=== PATIENT | male | born 1995 | race Two or more races ===

== ENCOUNTER 2019-03-31 20:32 | Emergency (ER) | payer MEDICAID ==
[~2019-03-31] VITALS: Ht 167.6 cm; Wt 67.1 kg
[2019-03-31] MEDS ORDERED: ONDANSETRON HCL 4 MG/2 ML VIAL ONE (21:00)
[2019-03-31] MEDS ORDERED: HYDROmorphone HCL 2 MG/ML VL IV ONE ×2 (21:00→23:00)
[2019-03-31] MEDS ORDERED: HYDROmorphone HCL 2 MG/ML VL ONE (21:00)
[2019-03-31] MEDS ORDERED: ONDANSETRON HCL 4 MG/2 ML VIAL IV ONE ×2 (21:00→23:00)
[2019-03-31] MEDS ORDERED: cefTRIAXone 1GM/50ML D5W 50 ML IV ONE (21:00)
[2019-03-31] MEDS ORDERED: TETANUS-DIPTH-ACEL PERTUSSIS 0.5ML SYRG IM ONE (21:15)
[2019-03-31] MEDS ORDERED: LORazepam 2MG/ML-1ML VIAL IV ONE (21:45)
[2019-03-31] MEDS ORDERED: LIDOCAINE 1% HCL (LOCAL ANESTH.) INJ 20ML MDV ID ONE ×2 (21:45→22:15)
[2019-03-31] MEDS ORDERED: LIDOCAINE 1% HCL (LOCAL ANESTH.) INJ 20ML MDV ONE (22:05)
[2019-03-31] MEDS ORDERED: NEOMYCIN-BACITRACIN-POLYM UNITDOSE PKG TOP OINT TOP ONE (23:15)
[2019-03-31 23:40] VITALS: BP 131/94
== END 2019-03-31 23:45 | disposition home or self-care (01) ==
LOC: ER 20:34
DX: S61.211A Laceration without foreign body of left index finger without damage to nail, initial encounter (principal); S61.213A Laceration without foreign body of left middle finger without damage to nail, initial encounter; S61.215A Laceration without foreign body of left ring finger without damage to nail, initial encounter; W24.0XXA Contact with lifting devices, not elsewhere classified, initial encounter; Y93.89 Activity, other specified; Y92.69 Other specified industrial and construction area as the place of occurrence of the external cause; Y99.8 Other external cause status
CPT/HCPCS: 12002; 73090; 73130; 90471; 90715; 96365; 96375; 96376; 99284; J0696; J1170; J2001; J2060; J2405